=== PATIENT | male | born 1945 | race Caucasian/White ===

== ENCOUNTER 2016-07-04 21:20 | Emergency (ER) | payer MEDICARE ==
[~2016-07-04] VITALS: Ht 182.9 cm; Wt 87.4 kg
--- OUTSIDE RECORDS SUMMARY | 2016-07-04 21:28 | XMS REPORT | Summary of Care ---
Author Author Bess Yip APRN Organization Unknown Address [address], [place] [id number] Phone Unavailable Care Team Providers Care Supervisor Tellers Name Role Phone Bess Yip APRN Unavailable Unavailable Unavailable Unavailable Functional Status Functional Status Health Issues Name Dates Details Functional status health issues are not documented Status: Cognitive Status Health Issues Name Dates Details Cognitive status health issues are not documented Status: Problems Name Dates Details Acute sinusitis (461.9, J01.90) Status: Active Medications Name Dates Details PredniSONE 20 MG Oral Tablet TAKE 3 TABLETS DAILY FOR 3 DAYS, THEN 2 TABLETS DAILY FOR 3 DAYS, THEN 1 TABLET DAILY FOR 3 DAYS. Quantity: 18 Refills: 0 Bess Yip APRN Started 31-Mar-2014 ActiveNo Reported Medications Refills: 0 Active Allergies and Adverse Reactions Name Dates Details No Known Drug Allergies Status: Active Procedures Procedure Dates Details Procedures not documented Immunization Name Dates Details Immunizations not documented Social History Name Dates Details Smoking StatusNever smoker Vital Signs Date Test Result Details 31-Mar-2014 14:02 Heart Rate 90 /min Status: Respiration Rate 18 /min Status: Temperature 98.8 f Status: Weight 192 lb Status: O2 SAT 97 % Status: Results Date Description Value Details Results not documented Plan of Care Planned Observations Name Dates Details Planned Goals not documented Goal Instructions Instructions not documented Encounters Appointment; Bess Yip Encounter Diagnosis: Problem not documented On 31-Mar-2014 13:50
[2016-07-04] MEDS ORDERED: NS IV 500 ML 500 ML IV SCH (22:10)
[2016-07-04] MEDS ORDERED: SODIUM CHLORIDE FLUSH 3 ML SYR IV ONE (22:10)
[2016-07-04] MEDS ORDERED: ONDANSETRON 2 MG/ML (Z0FRAN) 2 ML VIAL IV ONE (22:10)
[2016-07-04] MEDS ORDERED: SODIUM CHLORIDE FLUSH 10 ML SYR IV PRN (22:10)
[2016-07-04] MEDS ORDERED: KETOROLAC 30 MG/ML (TORADOL) 1 ML VIAL IV ONE (22:10)
[2016-07-04 22:32] LABS: BASOPHILS % (AUTO) 0 % (0-2); EOSINOPHILS # (AUTO) 0.1 10^3uL; EOSINOPHILS % (AUTO) 0 % (0-4); LYMPHOCYTES # (AUTO) 1.4 X10^3; MEAN CORPUSCULAR HEMOGLOBIN 30.6 PG (26.0-34.0); MEAN CORPUSCULAR HGB CONC 34.8 g/dL (31.0-37.0); MEAN CORPUSCULAR VOLUME 88 FL (80-100); MEAN PLATELET VOLUME 9.1 FL (6.0-9.5); MONOCYTES # (AUTO) 1.3 X10^3; MONOCYTES % (AUTO) 7 % (3-11); NEUTROPHILS # (AUTO) 16.1 X10^3; NEUTROPHILS % (AUTO) 85 % (51-67); PLATELET COUNT 528 10^3uL (150-450); WHITE BLOOD COUNT 19.02 10^3uL (4.0-11.0)
[2016-07-04 22:54] LABS: ALBUMIN 4.4 g/dL (3.4-5.0); ANION GAP 19.7 MEQ/L (3-15); TOTAL PROTEIN 7.6 g/dL (6.4-8.5)
[2016-07-04 23:40] LABS: BILIRUBIN,URINE Negative (Negative); CLARITY,URINE Cloudy; COLOR,URINE Amber; GLUCOSE, URINE (UA) Negative (Negative); LEUKOCYTE ESTERASE ,URINE Negative (Negative); PH,URINE 5.5 (5.0 - 8.0); UROBILINOGEN,URINE 0.2 mg/dL (0.2-1.0)
[2016-07-05] MEDS ORDERED: HYDR-3702 PO (00:13)
[2016-07-05] MEDS ORDERED: PRM25T PO (00:13)
[2016-07-05] MEDS ORDERED: ED- PROMETHAZINE 25 MG (PHENERGAN) 10 TABLETS/BTL PO ONE (00:15)
[2016-07-05] MEDS ORDERED: ED- HYDROcodone/ACETAMINOPHEN 5MG/325MG (NORCO) 6 TABLETS/BTL PO ONE (00:15)
[2016-07-05 00:26] LABS: BAND NEUTROPHILS % 0 % (0-6); EOSINOPHILS % 0 % (0-4); LYMPHOCYTES # 1.7 #; MONOCYTES # 1.33 #; MONOCYTES % 7 % (3-11); SEGMENTED NEUTROPHILS % 84 % (51-67); TOTAL CELLS COUNTED 100
[2016-07-05 00:27] LABS: RBC MORPH NORMAL (NORMAL)
[2016-07-05 00:37] LABS: RBC,URINE >100 /HPF; URINE CENTRIFUGED VOLUME 12 mL
[2016-07-05 07:08] VITALS: BP 150/93
--- NOTE | 2016-07-05 07:55 | Diagnostic Imaging Report ---
PROCEDURE: CT abdomen and pelvis without contrast. TECHNIQUE: Multiple contiguous axial images were obtained through the abdomen and pelvis without the use of intravenous contrast. INDICATION: Left upper and lower quadrant pain. No priors for comparison. A calculus measuring 4 mm at the distal left ureter just proximal to its ureterovesical junction results in mild upstream hydroureteronephrosis and perinephric edema. No urinoma or fluid collection. No opaque right-sided kidney stone. The appendix visualized and normal. There is no diverticulitis. A nonobstructing punctate 1 mm stone within a lower pole calyx on the left noted. There is a probable cyst in the right renal midpole not well evaluated owing to absence of contrast. There is 9 mm cholelithiasis noted without biliary ductal dilatation. The pancreas unremarkable. The spleen is negative. There is no adrenal mass. IMPRESSION: A 4 mm distal left ureteral stone results in mild upstream hydroureteronephrosis. An additional nonobstructing intrarenal calculus on the left noted. No other acute finding. Agree with the preliminary. Dictated by: Dictated on workstation # [id number]
== END 2016-07-05 01:10 | disposition home or self-care (01) ==
LOC: ED 21:24
DX: N13.2 Hydronephrosis with renal and ureteral calculous obstruction (principal)
CPT/HCPCS: 36415; 51798; 74176; 80053; 81003; 81015; 82150; 83690; 85025; 86140; 96361; 96374; 96375; 99283; A9270; J1885; J2405; J7040